=== PATIENT | male | born 1980 | race Caucasian/White ===

== ENCOUNTER 2017-02-10 10:15 | Emergency (ER) | payer SELFPAY ==
--- NOTE | 2017-02-14 17:07 | ER ---
ADMIT: 02/10/2017 RM/LOC: ER [facility] MR#: [id number] [address] [facility] [id number] [place], [place] [id number] NELIA FALCON [address] [address] Emergency Room Report SEX: M AGE: 36 : 1980 DATE: 02/10/2017 ADDENDUM: A 36-year-old white male, coming in with left flank pain. No trauma. CBC, chemistry, and lipase negative. Some RBCs in the urine. CT scan was negative, though he has does have a history of kidney stones. It is why we had worked it up. The pain gone and will follow up as needed. CONDITION ON DISCHARGE: Good. Jesús Kapadia MD/ elder JOB #: [id number] CC: Jesús Kapadia MD, Attending Physician Yordy Virgen MD, Family Physician
== END 2017-02-10 13:53 | disposition home or self-care (01) ==
LOC: ER 10:15
DX: R10.9 Unspecified abdominal pain (principal); I10 Essential (primary) hypertension; Z87.442 Personal history of urinary calculi; Z79.899 Other long term (current) drug therapy